=== PATIENT | female | born 2000 | race Caucasian/White ===

== ENCOUNTER 2020-10-17 05:01 | Emergency (ER) | payer OTHER ==
[2020-10-17] MEDS ORDERED: DEXAMETHASONE 4 MG TABLET PO ONE (07:49)
[2020-10-17] MEDS ORDERED: DIPHENHYDRAMINE HCL 50 MG CAPSULE PO ONE (07:50)
--- NOTE | 2020-10-17 07:54 | ER Document Report ---
ED Allergic Reaction - General Chief Complaint: Allergic Reaction Stated Complaint: POSSIBLE ALLERGIC REACTION Time Seen by Provider: 10/17/20 07:32 Notes: HPI: 20-year-old female that presents today stating she has a long history of multiple allergies and she recently bought a new dog around 2 days ago. She awoke today feeling nasal congestion, facial puffiness, with no noticeable rash. She denies any fevers, chest pain, or leg swelling. ROS: See HPI All other review of systems reviewed and otherwise negative Reviewed vital signs and nursing note as charted by RN. PHYSICAL EXAM: CONSTITUTIONAL: Alert and oriented and responds appropriately to questions. Well-appearing; well-nourished HEAD: Normocephalic; atraumatic EYES: PERRL; Conjunctivae clear, sclerae non-icteric ENT: No lip, tongue, posterior pharyngeal swelling. No stridor or facial swelling noted. Minimal nasal congestion NECK: Supple without meningismus; non-tender; no cervical lymphadenopathy, no masses CARD: Regular rate and rhythm; no murmurs; symmetric distal pulses RESP: Normal chest excursion without splinting or tachypnea; breath sounds clear and equal bilaterally; no wheezing or stridor noted ABD/GI: Normal bowel sounds; non-distended; soft, non-tender BACK: The back appears normal and is non-tender to palpation EXT: Normal ROM in all joints; non-tender to palpation; no edema SKIN: No acute lesions noted NEURO: CN 2-12 intact; 5/5 bilateral upper and lower extremity strength with sensation intact to light touch PSYCH: The patient's mood and manner are appropriate. Grooming and personal hygiene are appropriate. - Related Data Allergies/Adverse Reactions: cat dander Allergy (Verified 10/17/20 06:38) dog dander Allergy (Verified 10/17/20 05:18) Home Medications: celexa Past Medical History - Social History Smoking Status: Never Smoker Frequency of alcohol use: Occasional Drug Abuse: None Family History: Reviewed & Not Pertinent Patient has homicidal ideation: No Physical Exam - Vital signs Vitals: Temp Pulse Resp BP Pulse Ox 97.7 F 68 20 117/62 96 10/17/20 05:09 10/17/20 05:09 10/17/20 05:09 10/17/20 05:09 10/17/20 05:09 Course - Re-evaluation Re-evalutation: 10/17/20 07:51 Given the history and physical examination with vital signs as recorded, in this very well-appearing female no acute distress with some minimal nasal congestion, with no signs of anaphylaxis, with a new dog at home, with multiple allergies in the past including an allergic reaction to a Ade tree requiring an ER visit, with no EpiPen at home, I will provide a dose of Decadron, Benadryl, and provide a prescription for an epinephrine pen with strict return precautions. I do not believe any imaging or laboratory work is necessary at this particular moment. - Vital Signs Vital signs: Temp Pulse Resp BP Pulse Ox 97.7 F 68 20 117/62 96 10/17/20 05:09 10/17/20 05:09 10/17/20 05:09 10/17/20 05:09 10/17/20 05:09 - Laboratory Results Critical Laboratory Results Reviewed: No Critical Results - Radiology Results Critical Radiology Results Reviewed: No Critical Results Discharge - Discharge Clinical Impression: Acute allergic reaction Qualifiers: Encounter type: initial encounter Qualified Code(s): T78.40XA - Allergy, unspecified, initial encounter Condition: Good Disposition: HOME, SELF-CARE Additional Instructions: Come back immediately for any worsening symptoms, shortness of breath, fevers, vomiting, abdominal pain, facial swelling, difficulty breathing or swallowing, or any other acute problems. Prescriptions: Epinephrine [Epipen] 0.3 mg IJ ASDIR PRN 1 Days #2 auto.injct PRN Reason:
[2020-10-17 08:04] VITALS: BP 126/62
== END 2020-10-17 08:06 | disposition home or self-care (01) ==
LOC: EEVIPCON 05:01 → ER 05:01
DX: T78.40XA Allergy, unspecified, initial encounter (principal); R09.81 Nasal congestion
CPT/HCPCS: 99283; J8540